=== PATIENT | male | born 1970 | race African-American/Black ===

== ENCOUNTER 2018-03-05 18:21 | Emergency (ER) | payer OTHER, BC ==
[~2018-03-05] VITALS: Ht 167.6 cm; Wt 72.8 kg
[2018-03-05] MEDS ORDERED: MOTRIN800 MG PO (20:26)
[2018-03-05] MEDS ORDERED: FLEXERIL10 MG PO (20:26)
[2018-03-05] MEDS ORDERED: PREDNISONE20 MG PO (20:26)
[2018-03-05 20:49] VITALS: BP 133/76
== END 2018-03-05 21:01 | disposition home or self-care (01) ==
LOC: EME 18:21
DX: S16.1XXA Strain of muscle, fascia and tendon at neck level, initial encounter (principal); S39.012A Strain of muscle, fascia and tendon of lower back, initial encounter; V49.40XA Driver injured in collision with unspecified motor vehicles in traffic accident, initial encounter; Y92.414 Local residential or business street as the place of occurrence of the external cause
CPT/HCPCS: 72040; 72100; 99281; 99284